=== PATIENT | male | born 1985 | race Two or more races ===

== ENCOUNTER 2016-08-03 19:12 | Emergency (ER) | payer SELFPAY ==
[~2016-08-03] VITALS: Ht 172.7 cm; Wt 102.0 kg
[2016-08-03] MEDS ORDERED: SODIUM CHLORIDE 0.9% 1,000 ML IV ONE (19:56)
[2016-08-03] MEDS ORDERED: ONDANSETRON 2MG/ML, 2ML ONE (19:59)
[2016-08-03] MEDS ORDERED: HYDROmorphone 1 MG/ML, 1ML ONE ×2 (19:59→20:45)
[2016-08-03] MEDS ORDERED: SODIUM CHLORIDE FLUSH 10ML SYR IVF ONE (20:00)
[2016-08-03] MEDS ORDERED: SODIUM CHLORIDE 0.9% 1,000ML IVBOLUS ONE (20:00)
[2016-08-03] MEDS ORDERED: ONDANSETRON 2MG/ML, 2ML IVPush ONE (20:00)
[2016-08-03] MEDS: HYDROmorphone 1 MG/ML, 1ML IVPush PRN ×2 (20:05→21:00)
[2016-08-03 20:32] LABS: ASPARTATE AMINO TRANSFERASE 21 U/L (15-37); BLOOD UREA NITROGEN 19 mg/dL (7-18)
[2016-08-03 23:07] VITALS: BP 122/63
== END 2016-08-03 23:07 | disposition home or self-care (01) ==
LOC: ED 22:49
DX: K80.20 Calculus of gallbladder without cholecystitis without obstruction (principal)
CPT/HCPCS: 36415; 74022; 76700; 80053; 81001; 83690; 85025; 93005; 96361; 96374; 96375; 96376; 99285; J1170; J2405; J7030

== ENCOUNTER 2017-06-21 03:09 | Inpatient (IN) | payer OTHER ==
[~2017-06-21] VITALS: Ht 175.3 cm; Wt 111.8 kg
[2017-06-21] MEDS ORDERED: SODIUM CHLORIDE FLUSH 10ML SYR IVF ONE (03:30)
[2017-06-21] MEDS ORDERED: DICYCLOMINE 10 MG/ML, 2ML IM ONE (03:30)
[2017-06-21] MEDS ORDERED: DICYCLOMINE 10 MG/ML, 2ML ONE (03:33)
[2017-06-21 03:47] LABS: ALANINE AMINOTRANSFERASE 83 U/L (12-78); ALBUMIN 4.1 g/dL (3.4-5.0); ANION GAP 7 mmol/L (5-15); CALCIUM 8.8 mg/dL (8.5-10.1); CHLORIDE 106 mmol/L (98-107)
[2017-06-21 03:49] LABS: ALKALINE PHOSPHATASE 57 U/L (45-117); BILIRUBIN,TOTAL 0.9 mg/dL (0.2-1.0); CREATININE 1.16 mg/dL (0.7-1.3); TOTAL PROTEIN 7.8 g/dL (6.4-8.2)
[2017-06-21 03:57] LABS: BASOPHILS % (AUTO) 1 % (0-1); EOSINOPHILS # (AUTO) 0.19 x10^3/uL (0-0.4); EOSINOPHILS % (AUTO) 2 % (1-7); LYMPHOCYTES # (AUTO) 2.88 x10^3/uL (1-3.4); LYMPHOCYTES % (AUTO) 25 % (22-44); MD NO; MEAN CORPUSCULAR HEMOGLOBIN 29.8 pg (27.5-34.5); MEAN CORPUSCULAR HGB CONC 34.3 g/dL (33.2-36.2); MEAN CORPUSCULAR VOLUME 86.7 fL (81-97); MEAN PLATELET VOLUME 8.7 fL (7.4-10.4); MONOCYTES # (AUTO) 1.06 x10^3/uL (0.2-0.8); MONOCYTES % (AUTO) 9 % (2-9); NEUTROPHILS # (AUTO) 7.26 x10^3/uL (1.8-6.8); NEUTROPHILS % (AUTO) 63 % (42-75); PLATELET COUNT 240 x10^3/uL (130-400); RED BLOOD COUNT 5.69 x10^6/uL (4.38-5.82); RED CELL DISTRIBUTION WIDTH 14.3 % (9.4-14.8)
[2017-06-21] MEDS ORDERED: MORPHINE SULFATE 4 MG/ML, 1ML ONE (04:03)
[2017-06-21] MEDS: MORPHINE SULFATE 4 MG/ML, 1ML IVPush PRN ×3 (04:16→05:30)
[2017-06-21] MEDS ORDERED: METOCLOPRAMIDE 5 MG/ML, 2ML ONE (04:40)
[2017-06-21] MEDS ORDERED: HYDROmorphone 2 MG/ML, 1ML ONE ×3 (04:40→09:18)
[2017-06-21 04:41] LABS: MICROSCOPIC AUTO
[2017-06-21] MEDS ORDERED: CEFOTETAN PMX 1GM/50ML 50 ML ONE (04:41)
[2017-06-21 04:46] LABS: CULTURE INDICATED? NO
[2017-06-21] MEDS: HYDROmorphone 1 MG/ML, 1ML IVPush PRN ×2 (04:57→09:24)
[2017-06-21] MEDS ORDERED: CEFOTETAN PMX 1GM/50ML 50 ML IV ONE (05:00)
[2017-06-21] MEDS ORDERED: ONDANSETRON 2MG/ML, 2ML IVPush PRN ×2 (05:00→11:30)
[2017-06-21] MEDS ORDERED: METOCLOPRAMIDE 5 MG/ML, 2ML IVPush ONE (05:00)
[2017-06-21] MEDS ORDERED: HYDROmorphone 1 MG/ML, 1ML IVPush PRN (05:00)
[2017-06-21] MEDS ORDERED: SODIUM CHLORIDE FLUSH 10ML SYR IVF PRN (05:00)
[2017-06-21] MEDS ORDERED: SODIUM CHLORIDE 0.9% 1,000ML IVBOLUS ONE (05:00)
[2017-06-21] MEDS: SODIUM CHLORIDE 0.9% 1,000 ML IV ONE ×2 (05:30→06:36)
[2017-06-21] MEDS ORDERED: OMNIPAQUE 350 MG/ML, 100ML BOTTLE ONE (06:01)
[2017-06-21] MEDS ORDERED: MIDAZOLAM 1 MG/ML, 2ML ONE (10:58)
[2017-06-21] MEDS ORDERED: ONDANSETRON ODT 8 MG ONE (10:59)
[2017-06-21] MEDS ORDERED: PROPOFOL 10 MG/ML, 20ML ONE (10:59)
[2017-06-21] MEDS ORDERED: SUCCINYLCHOLINE 20 MG/ML, 10ML ONE (10:59)
[2017-06-21] MEDS ORDERED: ROCURONIUM 10 MG/ML,10ML ONE (10:59)
[2017-06-21] MEDS ORDERED: FENTANYL PF 250 MCG/5ML ONE ×2 (10:59)
[2017-06-21] MEDS ORDERED: LIDOCAINE 4%, 4 ML SYR/CANN TP ONE (10:59)
[2017-06-21] MEDS ORDERED: BUPIVACAINE/PF 0.5% ONE (11:08)
[2017-06-21] MEDS ORDERED: EPINEPHRINE 1 MG/ML, 1ML ONE (11:08)
[2017-06-21] MEDS ORDERED: BUPIVACAINE/PF-EPI 0.5% 1:200K IM ONE (11:30)
[2017-06-21] MEDS ORDERED: morphine SULFATE 10 MG/ML, 1ML IV PRN ×2 (11:30→15:00)
[2017-06-21] MEDS ORDERED: PROMETHAZINE 25 MG/ML, 1ML IV PRN (11:30)
[2017-06-21] MEDS ORDERED: ACETAMINOPHEN 325 MG TABLET PO PRN (11:30)
[2017-06-21] MEDS ORDERED: MEPERIDINE/PF 25MG/0.5ML IVPush PRN (11:30)
[2017-06-21] MEDS ORDERED: HYDROcodone/APAP 7.5-325MG/15ML UDC PO PRN (11:30)
[2017-06-21] MEDS ORDERED: OXYcodone 5 MG/5 ML ORAL.SOL UDC PO PRN (11:30)
[2017-06-21] MEDS ORDERED: FENTANYL PF 100 MCG/2ML ONE (12:23)
[2017-06-21] MEDS ORDERED: HYDROcodone/APAP 7.5-325MG/15ML UDC ONE (12:24)
[2017-06-21] MEDS: FENTANYL PF 100 MCG/2ML IV PRN ×2 (12:25→12:42)
[2017-06-21] MEDS ORDERED: MEPERIDINE/PF 25MG/0.5ML ONE (12:29)
[2017-06-21] MEDS ORDERED: hydrALAzine 20 MG/ML, 1ML IV PRN (15:00)
[2017-06-21] MEDS ORDERED: ACETAMINOPHEN 650 MG SUPP PR PRN (15:00)
[2017-06-21] MEDS: LACTATED RINGERS 1,000 ML IV SCH ×2 (15:00→23:00)
[2017-06-21] MEDS ORDERED: DIPHENHYDRAMINE 25 MG CAPSULE PO PRN (15:00)
[2017-06-21] MEDS ORDERED: DIPHENHYDRAMINE 50 MG/ML, 1ML IV PRN (15:00)
[2017-06-21] MEDS ORDERED: ONDANSETRON 2MG/ML, 2ML IV PRN (15:00)
[2017-06-21] MEDS: CEFOTETAN PMX 2GM/50ML 50 ML IVPB SCH (15:36)
[2017-06-21] MEDS ORDERED: ENOXAPARIN 40 MG/0.4 ML SQ SCH (16:00)
[2017-06-21] MEDS: KETOROLAC 30 MG/1 ML IV PRN (18:35)
[2017-06-21 19:51] VITALS: BP 103/61
[2017-06-21] MEDS: SODIUM CHLORIDE FLUSH 10ML SYR IVF SCH (19:54)
[2017-06-22] MEDS: CEFOTETAN PMX 2GM/50ML 50 ML IVPB SCH (02:48)
[2017-06-22 03:08] VITALS: BP 107/66
[2017-06-22] MEDS: LACTATED RINGERS 1,000 ML IV SCH ×3 (06:26→22:25)
[2017-06-22] MEDS: KETOROLAC 30 MG/1 ML IV PRN ×3 (06:40→22:18)
[2017-06-22 06:58] VITALS: BP 108/70
[2017-06-22] MEDS ORDERED: LACTATED RINGERS 1,000 ML IVBOLUS ONE (10:30)
[2017-06-22] MEDS: SODIUM CHLORIDE FLUSH 10ML SYR IVF SCH ×2 (11:13→21:00)
[2017-06-22 12:20] VITALS: BP 99/64
[2017-06-22] MEDS: ACETAMINOPHEN 325 MG TABLET PO PRN ×2 (13:17→20:47)
[2017-06-22 19:42] VITALS: BP 111/74
[2017-06-22 21:50] VITALS: BP 117/75
[2017-06-23 01:39] VITALS: BP 111/64
[2017-06-23] MEDS: ACETAMINOPHEN 325 MG TABLET PO PRN (01:44)
[2017-06-23] MEDS: HYDROcodone/APAP 5/325 TABLET PO PRN ×2 (06:19→11:16)
[2017-06-23 06:21] VITALS: BP 116/66
[2017-06-23] MEDS: LACTATED RINGERS 1,000 ML IV SCH ×2 (07:00→13:42)
[2017-06-23] MEDS: SODIUM CHLORIDE FLUSH 10ML SYR IVF SCH (09:00)
[2017-06-23] MEDS ORDERED: POLYETHYLENE GLYCOL 17 GM PACKET NG ONE (09:00)
[2017-06-23 13:37] VITALS: BP 115/87
[2017-06-23] MEDS ORDERED: HYDR-3240 PO (16:44)
== END 2017-06-23 17:25 | disposition home or self-care (01) | DRG 418 ==
LOC: ED 03:44 → EDIP 04:44 → 4NOR 05:25
PROVIDERS: ADMIT Surgery; ATTEND Surgery
PROC: 0FT44ZZ Resection of Gallbladder, Percutaneous Endoscopic Approach (ICD-10-PCS; principal; 2017-06-21 10:30)
DX: K80.00 Calculus of gallbladder with acute cholecystitis without obstruction (principal); I96 Gangrene, not elsewhere classified; K66.0 Peritoneal adhesions (postprocedural) (postinfection); F17.210 Nicotine dependence, cigarettes, uncomplicated
CPT/HCPCS: 36415; 74177; 80053; 81001; 83690; 85025; 86677; 88304; 96372; 96374; 96375; J0171; J1170; J1650; J1885; J2175; J2250; J2704; J3010; J3490; Q0162; Q9967; J0330; J0500; J2765; J7030; J7120; S0074

== ENCOUNTER 2017-09-07 21:48 | Emergency (ER) | payer OTHER ==
[~2017-09-07] VITALS: Ht 167.6 cm; Wt 108.0 kg
[~2017-09-07 21:48] MED LIST: HYDR-3240 PO
[2017-09-07 22:01] VITALS: BP 147/93
[2017-09-07] MEDS ORDERED: HYDROcodone/APAP 5/325 TABLET ONE ×2 (23:08→23:54)
[2017-09-07] MEDS ORDERED: HYDROcodone/APAP 5/325 TABLET PO ONE (23:30)
[2017-09-08] MEDS ORDERED: HYDROcodone/APAP 5/325 TABLET PO ONE
== END 2017-09-08 00:23 | disposition home or self-care (01) ==
LOC: ED 22:36
DX: S63.287A Dislocation of proximal interphalangeal joint of left little finger, initial encounter (principal); X58.XXXA Exposure to other specified factors, initial encounter; Y93.89 Activity, other specified; Y92.009 Unspecified place in unspecified non-institutional (private) residence as the place of occurrence of the external cause; Y99.8 Other external cause status
CPT/HCPCS: 26770; 99284

== ENCOUNTER 2018-07-29 16:25 | Emergency (ER) | payer OTHER ==
[~2018-07-29] VITALS: Ht 165.1 cm; Wt 115.2 kg
[2018-07-29 16:35] VITALS: BP 133/85
== END 2018-07-29 18:37 | disposition home or self-care (01) ==
LOC: ED 17:12
DX: S16.1XXA Strain of muscle, fascia and tendon at neck level, initial encounter (principal); S39.012A Strain of muscle, fascia and tendon of lower back, initial encounter; V49.49XA Driver injured in collision with other motor vehicles in traffic accident, initial encounter; Y93.89 Activity, other specified; Y92.410 Unspecified street and highway as the place of occurrence of the external cause; Y99.8 Other external cause status
CPT/HCPCS: 72072; 72110; 72125; 72220; 99284

== ENCOUNTER 2020-10-12 11:47 | Inpatient (IN) | payer BC, OTHER ==
[~2020-10-12] VITALS: Ht 167.6 cm; Wt 144.1 kg
[~2020-10-12 11:47] MED LIST changes: +HYDR-2214 PO; -HYDR-3240 PO
--- NOTE | 2020-10-12 12:17 | NUR ---
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 Pt in bed in gown with cont spo2, bp q 30 min, side rails up x2. pt moning in bed reports pain 10/02. Asking for morphine. iv started , awating md ramos
[2020-10-12] MEDS ORDERED: MORPHINE SULFATE 4 MG/ML, 1ML IVPush PRN (12:30)
[2020-10-12] MEDS ORDERED: SODIUM CHLORIDE 0.9% 1,000ML IVBOLUS ONE (12:30)
[2020-10-12] MEDS ORDERED: ONDANSETRON 2MG/ML, 2ML IVPush ONE (12:30)
[2020-10-12] MEDS ORDERED: SODIUM CHLORIDE FLUSH 10ML SYR IVF ONE (12:30)
[2020-10-12 12:47] LABS: BASOPHILS % (AUTO) 0 % (0-1); EOSINOPHILS % (AUTO) 0 % (1-7); LYMPHOCYTES % (AUTO) 20 % (22-44); MEAN CORPUSCULAR HGB CONC 35.3 g/dL (33.2-36.2); MONOCYTES % (AUTO) 8 % (2-9); NEUTROPHILS % (AUTO) 72 % (42-75); PLATELET COUNT 147 x10^3/uL (130-400); RED BLOOD COUNT 5.98 x10^6/uL (4.38-5.82); RED CELL DISTRIBUTION WIDTH 14.6 % (9.4-14.8)
[2020-10-12] MEDS ORDERED: ONDANSETRON 2MG/ML, 2ML ONE (12:48)
[2020-10-12] MEDS ORDERED: MORPHINE SULFATE 4 MG/ML, 1ML ONE (12:49)
[2020-10-12 12:57] LABS: ALBUMIN 3.7 g/dL (3.4-5.0); ANION GAP 10 mmol/L (5-15); CALCIUM 8.9 mg/dL (8.5-10.1); CHLORIDE 105 mmol/L (98-107)
[2020-10-12] MEDS ORDERED: MAALOX/HYOSCYAMINE/LIDOCAINE 45 ML BTL ONE (12:59)
[2020-10-12 13:00] LABS: ALANINE AMINOTRANSFERASE 91 U/L (12-78); ALKALINE PHOSPHATASE 66 U/L (45-117); BILIRUBIN,TOTAL 0.7 mg/dL (0.2-1.0); CREATININE 0.65 mg/dL (0.7-1.3); TOTAL PROTEIN 7.9 g/dL (6.4-8.2)
[2020-10-12] MEDS ORDERED: MAALOX/HYOSCYAMINE/LIDOCAINE 45 ML BTL PO ONE (13:00)
--- NOTE | 2020-10-12 13:03 | NUR ---
CT DELAY; ONE ROOM DOING BIOPSY- PT COVID- MUST WAIT FOR BIOPSY TO BE DONE
--- NOTE | 2020-10-12 13:41 | NUR ---
Break RN: Pt resting in [facility], given urinal for UA, family member at bedside. Family educated on visitation policy should pt be admitted. NAD, no needs at this time.
--- NOTE | 2020-10-12 14:10 | NUR ---
Break RN: SHAMEKA sent to lab
[2020-10-12 14:40] LABS: MICROSCOPIC INDICATED
[2020-10-12] MEDS ORDERED: OMNIPAQUE 350 MG/ML, 100ML BOTTLE ONE (14:52)
[2020-10-12] MEDS ORDERED: CEFTRIAXONE 1,000 MG in DEXTROSE 5% 50 ML IVPB ONE (15:30)
[2020-10-12] MEDS ORDERED: AZITHROMYCIN 500 MG in SODIUM CHLORIDE 0.9% 250 ML IV ONE (15:30)
--- NOTE | 2020-10-12 15:50 | NUR ---
Pt reports that he want's to stay. notified
[2020-10-12] MEDS ORDERED: ACETAMINOPHEN 500 MG TABLET PO ONE (17:30)
[2020-10-12] MEDS ORDERED: ONDANSETRON ODT 4 MG PO PRN (18:00)
[2020-10-12] MEDS ORDERED: SODIUM CHLORIDE 0.9% 1,000 ML IV SCH (18:00)
[2020-10-12] MEDS ORDERED: IBUPROFEN 600 MG TABLET PO PRN (18:00)
[2020-10-12] MEDS ORDERED: ENALAPRILAT 1.25 MG/ML, 2ML IVPush PRN (18:00)
[2020-10-12] MEDS ORDERED: LABETALOL 5MG/ML, 20ML IVPush PRN (18:00)
[2020-10-12] MEDS ORDERED: ENOXAPARIN 40 MG/0.4 ML SQ SCH (18:00)
[2020-10-12] MEDS ORDERED: ACETAMINOPHEN 325 MG TABLET PO PRN (18:00)
[2020-10-12] MEDS ORDERED: BISACODYL 10 MG SUPP PR PRN (18:00)
[2020-10-12] MEDS ORDERED: MELATONIN 5 MG TABLET PO PRN (18:00)
[2020-10-12] MEDS ORDERED: ONDANSETRON 2MG/ML, 2ML IVPush PRN (18:00)
[2020-10-12] MEDS ORDERED: POLYETHYLENE GLYCOL 17 GM PACKET PO PRN (18:00)
--- NOTE | 2020-10-12 18:54 | NUR ---
Report from Jerry DAN
[2020-10-12 21:13] VITALS: BP 112/74
[2020-10-12] MEDS: ASCORBIC ACID 500 MG TABLET PO SCH (21:16)
[2020-10-12] MEDS: THIAMINE 100MG TABLET PO SCH (22:55)
[2020-10-13 00:05] VITALS: BP 105/64
[2020-10-13 05:40] LABS: BASOPHILS % (AUTO) 0 % (0-1); EOSINOPHILS % (AUTO) 0 % (1-7); LYMPHOCYTES % (AUTO) 31 % (22-44); MEAN CORPUSCULAR HGB CONC 35.1 g/dL (33.2-36.2); MEAN PLATELET VOLUME 8.2 fL (7.4-10.4); MONOCYTES % (AUTO) 12 % (2-9); NEUTROPHILS % (AUTO) 57 % (42-75); PLATELET COUNT 143 x10^3/uL (130-400); RED BLOOD COUNT 5.24 x10^6/uL (4.38-5.82); RED CELL DISTRIBUTION WIDTH 14.4 % (9.4-14.8)
[2020-10-13 06:10] LABS: CALCIUM 7.9 mg/dL (8.5-10.1); CHLORIDE 106 mmol/L (98-107)
[2020-10-13 06:16] LABS: ALANINE AMINOTRANSFERASE 93 U/L (12-78); ALKALINE PHOSPHATASE 56 U/L (45-117); BILIRUBIN,TOTAL 0.5 mg/dL (0.2-1.0); CREATININE 0.56 mg/dL (0.7-1.3); TOTAL PROTEIN 6.6 g/dL (6.4-8.2)
[2020-10-13 06:18] LABS: ANION GAP 10 mmol/L (5-15)
[2020-10-13 07:26] VITALS: BP 100/63
[2020-10-13 08:55] LABS: D-DIMER 0.79 ug/mlFEU (0.00-0.52)
[2020-10-13] MEDS ORDERED: SENNA/DOCUSATE TABLET PO SCH (09:00)
[2020-10-13] MEDS: THIAMINE 100MG TABLET PO SCH (09:07)
[2020-10-13] MEDS: CHOLECALCIFEROL 5,000u TAB PO SCH (09:07)
[2020-10-13] MEDS: ZINC SULFATE 220 MG CAPSULE PO SCH (09:07)
[2020-10-13] MEDS: ASCORBIC ACID 500 MG TABLET PO SCH ×2 (09:07→21:25)
[2020-10-13] MEDS ORDERED: PHARMACY INSTRUCTION MC PRN (12:30)
[2020-10-13] MEDS ORDERED: REMDESIVIR 200 MG in SODIUM CHLORIDE 0.9% 250 ML IVPB ONE (13:00)
[2020-10-13] MEDS: DEXAMETHASONE 4 MG/ML, 1ML IVPush SCH (13:16)
[2020-10-13 13:23] LABS: D-DIMER 0.84 ug/mlFEU (0.00-0.52)
[2020-10-13 13:25] VITALS: BP 108/74
[2020-10-13] MEDS: AZITHROMYCIN 500 MG in SODIUM CHLORIDE 0.9% 250 ML IV SCH (15:51)
[2020-10-13] MEDS: LACTOBACILLUS CHEW TABLET PO SCH ×2 (15:51→21:25)
[2020-10-13 17:39] LABS: CLOSTRIDIUM DIFFICILE ANTIGEN NEGATIVE; CLOSTRIDIUM DIFFICILE TOXIN NEGATIVE (Negative)
[2020-10-13] MEDS: CEFTRIAXONE 1,000 MG in DEXTROSE 5% 50 ML IVPB SCH (19:47)
[2020-10-13 20:45] VITALS: BP 118/77
[2020-10-13] MEDS: ENOXAPARIN 40 MG/0.4 ML SQ SCH (21:00)
[2020-10-14 02:09] VITALS: BP_SYST 115; BP_SYST 121; BP_DIAS 72; BP_DIAS 75
[2020-10-14 06:01] LABS: MEAN CORPUSCULAR HEMOGLOBIN 29.5 pg (27.5-34.5); MEAN CORPUSCULAR HGB CONC 34.5 g/dL (33.2-36.2); PLATELET COUNT 170 x10^3/uL (130-400); RED BLOOD COUNT 5.73 x10^6/uL (4.38-5.82); RED CELL DISTRIBUTION WIDTH 14.5 % (9.4-14.8)
[2020-10-14 06:23] LABS: <PLATELET ESTIMATE> ADEQUATE; <PLT MORPHOLOGY> NORMAL PLT MORPH; <RBC MORPHOLOGY> NORMAL; BAND#(MANUAL) 0.13 x10^3/uL; BANDS%(MANUAL) 5 % (0-7); LYMPH#(MANUAL) 1.12 x10^3/uL (1-3.4); LYMPHS% (MANUAL) 43 % (22-44); MONOS#(MANUAL) 0.16 x10^3/uL (0.3-2.7); MONOS% (MANUAL) 6 % (2-9); SEGS% (MANUAL) 46 % (42-75)
[2020-10-14] MEDS: ENOXAPARIN 40 MG/0.4 ML SQ SCH ×2 (08:53→21:16)
[2020-10-14] MEDS: THIAMINE 100MG TABLET PO SCH (08:55)
[2020-10-14] MEDS: ZINC SULFATE 220 MG CAPSULE PO SCH (08:55)
[2020-10-14] MEDS: ASCORBIC ACID 500 MG TABLET PO SCH ×2 (08:55→21:17)
[2020-10-14] MEDS: LACTOBACILLUS CHEW TABLET PO SCH ×3 (08:55→21:17)
[2020-10-14] MEDS: DEXAMETHASONE 4 MG/ML, 1ML IVPush SCH (08:55)
[2020-10-14] MEDS: CHOLECALCIFEROL 5,000u TAB PO SCH (08:55)
[2020-10-14 10:30] VITALS: BP 106/69
[2020-10-14 10:41] VITALS: BP 106/69
[2020-10-14 12:19] VITALS: BP 116/79
[2020-10-14] MEDS: REMDESIVIR 100 MG in SODIUM CHLORIDE 0.9% 250 ML IVPB SCH (13:17)
[2020-10-14] MEDS: CEFTRIAXONE 1,000 MG in DEXTROSE 5% 50 ML IVPB SCH (15:24)
[2020-10-14] MEDS: AZITHROMYCIN 500 MG in SODIUM CHLORIDE 0.9% 250 ML IV SCH (16:13)
[2020-10-14 18:32] VITALS: BP 110/72
[2020-10-15 02:35] VITALS: BP 111/66
[2020-10-15 08:40] VITALS: BP 115/79
[2020-10-15] MEDS: ASCORBIC ACID 500 MG TABLET PO SCH (08:59)
[2020-10-15] MEDS: CHOLECALCIFEROL 5,000u TAB PO SCH (08:59)
[2020-10-15] MEDS: DEXAMETHASONE 4 MG/ML, 1ML IVPush SCH (08:59)
[2020-10-15] MEDS: THIAMINE 100MG TABLET PO SCH (08:59)
[2020-10-15] MEDS: ZINC SULFATE 220 MG CAPSULE PO SCH (08:59)
[2020-10-15] MEDS: LACTOBACILLUS CHEW TABLET PO SCH (09:00)
[2020-10-15] MEDS: ENOXAPARIN 40 MG/0.4 ML SQ SCH (09:00)
[2020-10-15 09:12] LABS: BASOPHILS % (AUTO) 0 % (0-1); EOSINOPHILS % (AUTO) 0 % (1-7); LYMPHOCYTES % (AUTO) 29 % (22-44); MEAN CORPUSCULAR HEMOGLOBIN 29.3 pg (27.5-34.5); MEAN CORPUSCULAR HGB CONC 34.3 g/dL (33.2-36.2); MEAN PLATELET VOLUME 7.5 fL (7.4-10.4); MONOCYTES % (AUTO) 14 % (2-9); NEUTROPHILS % (AUTO) 57 % (42-75); PLATELET COUNT 201 x10^3/uL (130-400); RED BLOOD COUNT 5.68 x10^6/uL (4.38-5.82); RED CELL DISTRIBUTION WIDTH 14.5 % (9.4-14.8)
[2020-10-15 09:20] LABS: CHLORIDE 105 mmol/L (98-107)
[2020-10-15 09:28] LABS: ALANINE AMINOTRANSFERASE 129 U/L (12-78); ALBUMIN 3.4 g/dL (3.4-5.0); ALKALINE PHOSPHATASE 60 U/L (45-117); ANION GAP 10 mmol/L (5-15); BILIRUBIN,TOTAL 0.6 mg/dL (0.2-1.0); CALCIUM 8.9 mg/dL (8.5-10.1); CREATININE 0.58 mg/dL (0.7-1.3); TOTAL PROTEIN 7.4 g/dL (6.4-8.2)
[2020-10-15] MEDS ORDERED: DEXA6TAB6 PO (10:59)
[2020-10-15] MEDS ORDERED: CEFD300C37 PO (10:59)
[2020-10-15] MEDS ORDERED: AZIT500T10 PO (10:59)
[2020-10-15 12:29] VITALS: BP 108/74
[2020-10-15] MEDS: REMDESIVIR 100 MG in SODIUM CHLORIDE 0.9% 250 ML IVPB SCH (12:42)
== END 2020-10-15 16:30 | disposition home or self-care (01) | DRG 177 ==
LOC: ED 18:05 → OBSVTOIN 18:12 → EDIP 18:12 → 3N 19:56
PROVIDERS: ADMIT Family Medicine; ATTEND Family Medicine
PROC: XW033E5 Introduction of Remdesivir Anti-infective into Peripheral Vein, Percutaneous Approach, New Technology Group 5 (ICD-10-PCS; principal; 2020-10-13)
DX: U07.1 COVID-19 (principal); J12.82 Pneumonia due to coronavirus disease 2019; J96.01 Acute respiratory failure with hypoxia; J15.9 Unspecified bacterial pneumonia; D68.69 Other thrombophilia; Z68.41 Body mass index [BMI] 40.0-44.9, adult; E66.01 Morbid (severe) obesity due to excess calories; E86.0 Dehydration; K59.00 Constipation, unspecified; I10 Essential (primary) hypertension; Z90.49 Acquired absence of other specified parts of digestive tract; Z79.899 Other long term (current) drug therapy
CPT/HCPCS: 36415; 71045; 74177; 80053; 81001; 83605; 83690; 85025; 85379; 85384; 86140; 87040; 87070; 87205; 87324; 93970; 96361; 96374; 96375; 99285; G0378; J0456; J0696; J1100; J1650; J2405; Q9967; J2270; J7030; J7050